=== PATIENT | male | born 2000 | race Caucasian/White ===

== ENCOUNTER 2024-04-17 11:00 | Outpatient (RCR) | payer BC, SELFPAY | END 2024-08-01 13:39 | disposition home or self-care (01) | PROVIDERS: Visit Provider Family Medicine | DX: S76.212A Strain of adductor muscle, fascia and tendon of left thigh, initial encounter (principal); R10.32 Left lower quadrant pain; M25.552 Pain in left hip; M62.81 Muscle weakness (generalized); Z51.89 Encounter for other specified aftercare | CPT/HCPCS: 97110; 97161 ==